=== PATIENT | male | born 1955 | race Caucasian/White ===

== ENCOUNTER 2017-03-15 08:27 | Emergency (ER) | payer MEDICAID ==
[~2017-03-15] VITALS: Ht 167.6 cm; Wt 77.1 kg
[2017-03-15 11:24] VITALS: BP 144/91
== END 2017-03-15 11:19 | disposition home or self-care (01) ==
LOC: ER 08:27
DX: I83.893 Varicose veins of bilateral lower extremities with other complications (principal); I10 Essential (primary) hypertension
CPT/HCPCS: 36415; 73610; 85652; 93971